=== PATIENT | male | born 1985 | race Caucasian/White ===

== ENCOUNTER 2018-07-20 14:07 | Emergency (ER) | payer OTHER ==
[2018-07-20] MEDS ORDERED: KETOROLAC 60 MG/2 ML VIAL IM STA (14:37)
--- NOTE | 2018-07-20 14:40 | ED ---
General Adult HPI - General Chief complaint: Skin/Abscess/Foreign Body Stated complaint: Abcess Time Seen by Provider: 07/20/18 14:21 Source: patient, RN notes reviewed Mode of arrival: ambulatory Limitations: no limitations - History of Present Illness Initial comments: Patient is a 32-year-old male who presents the emergency department with complaints of right perineal pain that has been there for 3 days. He reports that he shaved that area recently. He reports that there has not been any drainage. He reports having boils in the past, some of which have required drainage, but not in this specific area. He has not taken anything for pain and would like something for pain now. He also complains of slightly swollen/ painful scrotum. Patient denies any recent fever, chills, shortness of breath, chest pain, back pain, abdominal pain, nausea or vomiting, numbness or tingling , dysuria or hematuria, headaches or visual changes, or any other complaints. - Related Data Previous Rx's Medication Instructions Recorded Ciprofloxacin HCl [Cipro] 500 mg PO Q12HR #20 day 07/20/18 Allergies Allergy/AdvReac Type Severity Reaction Status Date / Time No Known Allergies Allergy Verified 07/20/18 14:14 Review of Systems ROS Statement: Those systems with pertinent positive or pertinent negative responses have been documented in the HPI. ROS Other: All systems not noted in ROS Statement are negative. Past Medical History Past Medical History: No Reported History History of Any Multi-Drug Resistant Organisms: None Reported Past Surgical History: No Surgical Hx Reported Past Psychological History: No Psychological Hx Reported Smoking Status: Current every day smoker Past Alcohol Use History: Occasional Past Drug Use History: None Reported General Exam Limitations: no limitations General appearance: alert, in no apparent distress Head exam: Present: atraumatic, normocephalic Eye exam: Present: normal appearance Respiratory exam: Present: normal lung sounds bilaterally Cardiovascular Exam: Present: regular rate, normal rhythm exam: Present: scrotal swelling (Slight. Nurse Sarah Mena was present in the room during the examination.) External exam: Present: other (Right perineum with erythema and tenderness. No drainage. No fluctuance. Nurse Sarah Mena was present in the room during the examination.) Neurological exam: Present: alert, oriented X3 Psychiatric exam: Present: normal affect, normal mood Skin exam: Present: warm, dry Course Vital Signs 07/20/18 14:12 Temperature 98.2 F Pulse Rate 85 Respiratory 18 Rate Blood Pressure 155/78 O2 Sat by Pulse 99 Oximetry Medical Decision Making - Medical Decision Making Patient is afebile here. There is no fluctuance over the affected area. No drainage either. I&D not indicated at this time. Scrotal US revealed small bilateral hydroceles. Patient will be prescribed Ciprofloxacin. Case discussed in detail with attending physician Dr. Kenyon. Disposition Clinical Impression: Cellulitis Disposition: HOME SELF-CARE Condition: Good Instructions: Cellulitis (ED) Additional Instructions: Follow-up with PCP in 2 days. Return to emergency department if symptoms worsen or any other concerns. Prescriptions: Ciprofloxacin HCl [Cipro] 500 mg PO Q12HR #20 day Is patient prescribed a controlled substance at d/c from ED?: No Referrals: Osvaldo Dutton MD [Primary Care Provider] - 1-2 days Time of Disposition: 17:34
--- NOTE | 2018-07-20 16:33 | US ---
EXAMINATION TYPE: US scrotum with doppler. Grayscale and color Doppler Duplex imaging performed of marilin cabrera scrotum. DATE OF EXAM: 07/20/2018 COMPARISON: NONE CLINICAL HISTORY: Pain. Pt states painful, red right testicle x 3 days EXAM MEASUREMENTS: TESTICLES: Right Testicle: 5.2 x 2.3 x 3.3 cm Left Testicle: 4.9 x 2.0 x 3.0 cm EPIDIDYMIS HEAD: Right Epididymis: 1.5 cm Left Epididymis: 1.3 cm Doppler performed to assess for testicular vascularity; good bilateral color flow and waveforms are s een. There is no evidence of testicular torsion. Presence of hydroceles: Small amount of fluid bilaterally Presence of varicoceles: No Right epi head cyst largest= 0.8 cm, small hydrocele bilaterally, otherwise no abnormality visualiz ed IMPRESSION: There are spurs small bilateral hydroceles. No testicular torsion or mass. Right testicle is slightly larger than the left that could relate to mild inflammatory process.
[2018-07-20 17:48] VITALS: BP 136/78; PULSE 86; RESP 16; TEMP 98
== END 2018-07-20 17:45 | disposition home or self-care (01) ==
LOC: EC 14:07
DX: L03.315 Cellulitis of perineum (principal); N43.3 Hydrocele, unspecified; F17.200 Nicotine dependence, unspecified, uncomplicated
CPT/HCPCS: 93975; 76870; 99283; 96372; J1885